=== PATIENT | female | born 1960 | race Caucasian/White ===

== ENCOUNTER → 2022-04-23 12:39 | Outpatient (BNVA) | payer SELFPAY | PROVIDERS: Visit Provider Nurse Practitioner Family | DX: M79.646 Pain in unspecified finger(s) (principal); S62.625A Displaced fracture of middle phalanx of left ring finger, initial encounter for closed fracture; X58.XXXA Exposure to other specified factors, initial encounter | CPT/HCPCS: 73130 ==

== ENCOUNTER 2022-05-11 09:04 | Inpatient (IN) | payer OTHER, SELFPAY ==
[2022-05-11] VITALS (14 sets, daily range): BP systolic 121–161; BP diastolic 65–118; PULSE 89–118; RESP 16–20; TEMP 36.4–36.8; O2SAT 84–97; BMI 24.3
--- NOTE | 2022-05-11 09:12 | XRR_ITS ---
PROCEDURE INFORMATION: Exam: XR Chest Exam date and time: 05/11/2022 9:34 AM Age: 62 years old Clinical indication: Shortness of breath. TECHNIQUE: Imaging protocol: Radiologic exam of the chest. Views: 1 view. COMPARISON: No relevant prior studies available. FINDINGS: Lungs: No pulmonary vascular congestion, pulmonary edema or pneumonia. Pleural spaces: No pleural effusion or pneumothorax. Heart/Mediastinum: The cardiac silhouette is not enlarged. The mediastinal contours are normal. Bones/joints: No acute osseous abnormality. XR/XR chest 1V portable [id number] IMPRESSION: No acute finding.
--- NOTE | 2022-05-11 09:13 | W.ED.SOB ---
HPI - SOB/Dyspnea General: Chief Complaint: Shortness of Breath/Dyspnea Stated Complaint: sob Time Seen by Provider: 05/11/22 09:04 Source: patient Mode of arrival: ambulatory Limitations: no limitations History of Present Illness: HPI Narrative: 62-year-old female has a history of COPD she states that she just finished a 5-day course of antibiotics and steroids for bronchitis she states that today she has been having much difficulty time breathing she is hypoxic here 84% on room air she does not wear oxygen at home states she does have a nebulizer but her wheezing is gotten much worse she does have wheezing here she denies any pain denies any fever denies any vomiting or diarrhea. Associated symptoms: Deny abdominal pain, chest pain, fever(s), nausea or vomiting Review of Systems Const: Denies: fever(s), chills, body aches or change in appetite Eyes: Denies: blurry vision or eye discomfort ENMT: Denies: throat pain or dental pain Card: Denies: chest pain Resp: Reports: dyspnea, non-productive cough and wheezing GI: Denies: abdominal pain, nausea, vomiting or diarrhea : Denies: dysuria Musc: Denies: neck pain or back pain Skin/Breast: Denies: rash Neuro: Denies: headache(s) Psych: Denies: depression Dandy/Lymph: Denies: easy bruising All/Imm: Denies: urticaria PFSH ED PFSH: Medical History (Updated 05/11/22 @ 10:54 by Iza Arreola MD) COPD (chronic obstructive pulmonary disease) Social History (Updated 05/11/22 @ 09:15 by Iza Arreola MD) Smoking and tobacco status: current every day smoker Physical Exam Const: COMMON NORMALS: patient oriented x3 GENERAL APPEARANCE: in distress HENMT: COMMON NORMALS: normocephalic and atraumatic HEAD & SCALP: normocephalic and atraumatic Eye: COMMON NORMALS: Equal, round and reactive pupils present and EOMs intact bilaterally PUPIL: Yes Equal, round and reactive pupils present Neck/C-Spine: COMMON NORMALS: full ROM and supple Chest: COMMONS NORMALS: normal inspection of the chest and normal palpation of entire chest wall Resp: EFFORT & INSPECTION: Yes tachypneic and Yes respiratory distress AUSCULTATION: wheezes Cardio: COMMON NORMALS: regular rate, regular rhythm and No murmurs present (Cardio) RATE: regular rate RHYTHM: regular rhythm GI: COMMON NORMALS: Normal to inspection, nondistended, normoactive bowel sounds present, Soft to palpation, non-tender and no masses PALPATION: Yes Soft to palpation Extremity: COMMON NORMALS: normal to inspection and full ROM Neuro: COMMON NORMALS: patient oriented x3, moves all extremities and no focal motor deficits Psych: COMMON NORMALS: mental status grossly normal, Normal thought process present and cooperative THOUGHT PROCESS: Normal thought process present Skin: COMMON NORMALS: no rashes or lesions noted and no wounds GENERAL SKIN EXAM: no rashes or lesions noted Course Vital Signs: Vital signs: Vital Signs Temperature 98.3 F 05/11/22 09:09 Pulse Rate 95 05/11/22 11:05 Respiratory Rate 17 05/11/22 11:05 Blood Pressure 157/78 05/11/22 09:16 Pulse Oximetry 94 05/11/22 11:05 Oxygen Delivery Me thod 05/11/22 11:05 Oxygen Flow Rate 2 05/11/22 11:05 MDM - SOB/Dyspnea Medical Decision Making Patient presents here with COPD exacerbation patient is requiring oxygen here she is also failed outpatient treatment spoke to the hospitalist will admit at this time CT shows no signs of pneumonia or PE she has improved here after breathing treatment. Lab Data 05/11/22 09:22 05/11/22 09:22 Labs/Radiology: Radiology Impressions Chest X-Ray 05/11/22 09:12 IMPRESSION: No acute finding. Chest CTA 05/11/22 09:49 IMPRESSION: No sign of acute pulmonary embolism. COMMENTS: In the absence of a history or active diagnosis of lung cancer, it is recommended that this patient with emphysema be evaluated for enrollment in a low dose CT lung cancer screening program. Laboratory Results WBC 13.4 10^3/uL (4.0-10.0) H 05/11/22 09:22 RBC 4.42 10^6/uL (4.1-5.3) 05/11/22 09:22 Hgb 13.3 g/dL (11.5-15.3) 05/11/22 09:22 Hct 41.1 % (37.0-47.0) 05/11/22 09:22 MCV 93.0 fl (81-99) 05/11/22 09:22 MCH 30.1 pg (28.0-34.0) 05/11/22 09:22 MCHC 32.4 g/dL (30.0-36.0) 05/11/22 09:22 RDW 12.3 % (12.1-15.1) 05/11/22 09:22 Plt Count 201 10^3/cmm (130-400) 05/11/22 09:22 MPV 9.4 fL (7.4-10.4) 05/11/22 09:22 Neut % (Auto) 78.0 % 05/11/22 09:22 Lymph % (Auto) 13.0 % 05/11/22 09:22 Lake % (Auto) 5.1 % 05/11/22 09:22 Eos % (Auto) 1.7 % 05/11/22 09:22 Baso % (Auto) 0.4 % 05/11/22 09:22 Neut # (Auto) 10.45 10^3/uL (1.8-7.7) H 05/11/22 09:22 Lymph # (Auto) 1.7 10^3/uL (0.8-4.8) 05/11/22 09:22 Lake # (Auto) 0.7 10^3/uL (0.2-0.9) 05/11/22 09:22 Eos # (Auto) 0.2 10^3/uL (0.0-0.8) 05/11/22 09:22 Baso # (Auto) 0.1 10^3/uL (0.0-0.1) 05/11/22 09:22 Nucleated RBC % (auto) 0 % 05/11/22 09: Nucleated RBCs # 0.0 /100WBC 05/11/22 09:22 PT 14.20 SECONDS (12.1-14.9) 05/11/22 09:22 INR 1.07 (0.8-1.2) 05/11/22 09:22 D-Dimer 1.09 ug/mIFEU (0-0.59) H 05/11/22 09:22 Specimen Type Art 05/11/22 09:28 Sample Site Rb 05/11/22 09:28 ABG pH 7.38 (7.35-7.45) 05/11/22 09:28 ABG pCO2 55.4 mmHg (35-45) H 05/11/22 09:28 ABG pO2 91.3 mmHg (80.0-100.0) 05/11/22 09:28 ABG HCO3 32.7 mmol/L (22-26) H 05/11/22 09:28 ABG Base Excess 5.9 mmol/L (-2.0-2.0) H 05/11/22 09:28 Nazario Test Na 05/11/22 09:28 Hematocrit 42.8 % (37-47) 05/11/22 09:28 Hgb O2 Saturation 95.5 % (95-100) 05/11/22 09:28 Carboxyhemoglobin 1.1 %THgb (0.4-20.1) 05/11/22 09:28 Methemoglobin 0.8 % (0.4-1.5) 05/11/22 09:28 Total Hemoglobin 14.0 g/dL (12-16) 05/11/22 09:28 O2 Delivery Device Nc 05/11/22 09:28 O2 Liters/Min 2.0 % 05/11/22 09:28 FiO2 28.0 % 05/11/22 09:28 American Sign Language Teacher ID Amh 05/11/22 09:28 Sodium 136 mmol/L (136-145) 05/11/22 09:22 Potassium 3.7 mmol/L (3.5-5.1) 05/11/22 09:22 Chloride 96 mmol/L (98-107) L 05/11/22 09:22 Carbon Dioxide 30 mmol/L (22-29) H 05/11/22 09:22 Anion Gap 13.7 (5-19) 05/11/22 09:22 BUN 10 mg/dL (8-23) 05/11/22 09:22 Creatinine 0.5 mg/dL (0.5-0.9) 05/11/22 09:22 GFR Calculation 125.4 mL/min (90-130) 05/11/22 09:22 Glucose 111 mg/dL (65-115) 05/11/22 09:22 Calculated Osmolality 282 mOsm/kg (285-295) L 05/11/22 09:22 Calcium 8.8 mg/dL (8.5-10.5) 05/11/22 09:22 Total Bilirubin 0.2 mg/dL (0.15-1.2) 05/11/22 09:22 AST 20 U/L (0-32) 05/11/22 09:22 ALT 26 U/L (0-33) 05/11/22 09:22 Alkaline Phosphatase 65 U/L (35-105) 05/11/22 09:22 NT-Pro-B Natriuret Pep 355 pg/mL (0-125) H 05/11/22 09:22 Total Protein 6.9 g/dL (6.6-8.7) 05/11/22 09:22 Albumin 3.8 g/dL (3.5-5.2) 05/11/22 09:22 Globulin 3.1 g/dL (1.3-4.6) 05/11/22 09:22 Influenza Type A Ag negative (Negative) 05/11/22 09:22 Influenza Type B Ag negative (Negative) 05/11/22 09:22 SARS-CoV-2 Ag (Rapid) negative (Negative) 05/11/22 09:22 EKG Data EKG 1: I personally reviewed and interpreted this EKG as follows: EKG Interpretation Date: 05/11/22 EKG interpretation time: 09:21 Interpretation: nsr hr [address] or t wave abnormalities qrs 89 qtc 366 Discharge Plan Discharge Patient Disposition: Admitted As Inpatient Admit Provider: Lance Erazo Clinical Impression: Acute exacerbation of chronic obstructive airways disease, Acute respiratory failure with hypoxemia Condition: Stable Coding Level of Care Code ED Diesel Service Technician for Chg Fwd Exam Comprehensive
--- NOTE | 2022-05-11 09:21 | ECG_ITS ---
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 Measurements Intervals [place] Rate: 88 P: 79 W[place]: 157 QRS: 81 QRSD: 89 T: 66 QT: 321 QTc: 388 Interpretive Statements SINUS RHYTHM POSSIBLE RIGHT VENTRICULAR CONDUCTION DELAY [RSR (QR) IN V1/V2] ANTEROSEPTAL MYOCARDIAL INFARCTION , OF INDETERMINATE AGE [40+ ms Q WAVE IN V1-V4] No previous ECG available for comparison Electronically Signed On 05-12-2022 11:24:09 NICKEL PLANT OPERATOR by Jameel Pak M.D. [id number]
[2022-05-11] MEDS: albuterol 2.5 mg/3 mL Neb INHALATION ×4 (09:23→19:28)
[2022-05-11] MEDS: ipratropium 0.5 mg/2.5 mL Neb INHALATION ×4 (09:23→19:28)
[2022-05-11 09:33] LABS: Basophils # 0.1 10^3/uL (0.0-0.1); Basophils % 0.4 %; Eosinophils # 0.2 10^3/uL (0.0-0.8); Eosinophils % 1.7 %; Hematocrit 41.1 % (37.0-47.0); Hemoglobin 13.3 g/dL (11.5-15.3); Lymphocytes # 1.7 10^3/uL (0.8-4.8); Mean Corpuscular HGB Conc 32.4 g/dL (30.0-36.0); Mean Corpuscular Hemoglobin 30.1 pg (28.0-34.0); Mean Platelet Volume 9.4 fL (7.4-10.4); Monocytes # 0.7 10^3/uL (0.2-0.9); Monocytes % 5.1 %; Neutrophils # 10.45 10^3/uL (1.8-7.7); Nucleated Red Blood Cells % 0 %; Platelet Count 201 10^3/cmm (130-400); Red Blood Count 4.42 10^6/uL (4.1-5.3); Red Cell Distribution Width 12.3 % (12.1-15.1); White Blood Count 13.4 10^3/uL (4.0-10.0)
[2022-05-11 09:40] LABS: ABG PCO2 55.4 mmHg (35-45); ABG PH Result 7.38 (7.35-7.45); Base Excess ABG 5.9 mmol/L (-2.0-2.0); Blood Gas Operator Identificat AMH; HCO3 ABG 32.7 mmol/L (22-26); PO2 ABG 91.3 mmHg (80.0-100.0)
[2022-05-11 09:41] LABS: Arterial Blood Gas Hematocrit 42.8 % (37-47); Blood Gas Sample Site RB; Blood Gas Sample Type ART; Carboxyhemoglobin 1.1 %THgb (0.4-20.1); HGB O2 Sat 95.5 % (95-100); Methemoglobin 0.8 % (0.4-1.5); Oxygen Device NC
[2022-05-11 09:44] LABS: INR 1.07 (0.8-1.2)
[2022-05-11 09:47] LABS: D Dimer 1.09 ug/mIFEU (0-0.59)
--- NOTE | 2022-05-11 09:49 | CTR_ITS ---
PROCEDURE INFORMATION: Exam: CTA Chest With Contrast Exam date and time: 05/11/2022 10:13 AM Age: 62 years old Clinical indication: Shortness of breath; Additional info: SOB TECHNIQUE: Imaging protocol: Computed tomographic angiography of the chest with contrast. 3D rendering (Not supervised by radiologist): MIP and/or 3D reconstructed images were created by the technologist. Radiation optimization: All CT scans at this facility use at least one of these dose optimization techniques: automated exposure control; mA and/or kV adjustment per patient size (includes targeted exams where dose is matched to clinical indication); or iterative reconstruction. Contrast material: OMNI 350; Contrast volume: 63 ml; Contrast route: INTRAVENOUS (IV); Other protocol: This patient has received 0 known CTs and 0 known cardiac nuclear medicine studies in the 12 months prior to the current study. COMPARISON: CR (CHEST, ) 05/11/2022 9:34 AM RADIATION DOSE METRICS: Total DLP (mGy-cm): 358.4 FINDINGS: Pulmonary arteries: No sign of acute pulmonary embolism. Aorta: No thoracic aortic aneurysm or dissection when allowing for pulsation artifact. Lungs: Mild bilateral centrilobular emphysema. Bilateral bronchial wall thickening which can be acute versus chronic inflammation or edema. No acute pneumonia or pulmonary edema. Pleural spaces: No pleural effusion or pneumothorax. Heart: The heart is not enlarged. No pericardial effusion. Lymph nodes: No pathologically enlarged lymph nodes. Adrenal glands: There is a 1.7 cm right adrenal mass with attenuation measurements compatible with a lipid rich adrenal adenoma. Bones/joints: Mild multilevel disc degeneration in the thoracic spine. Soft tissues: No acute soft tissue abnormality. CT/CT angio chest PE protcl [id number] IMPRESSION: No sign of acute pulmonary embolism. COMMENTS: In the absence of a history or active diagnosis of lung cancer, it is recommended that this patient with emphysema be evaluated for enrollment in a low dose CT lung cancer screening program.
[2022-05-11 10:03] LABS: Alanine Aminotransferase 26 U/L (0-33); Albumin Level 3.8 g/dL (3.5-5.2); Alkaline Phosphatase 65 U/L (35-105); Anion Gap 13.7 (5-19); Aspartate Amino Transferase 20 U/L (0-32); Blood Urea Nitrogen 10 mg/dL (8-23); Calcium 8.8 mg/dL (8.5-10.5); Carbon Dioxide 30 mmol/L (22-29); Chloride 96 mmol/L (98-107); Globulin 3.1 g/dL (1.3-4.6); Glomerular Filtration Rate 125.4 mL/min (90-130); Glucose 111 mg/dL (65-115); NT Pro B Type Natriuretic Pept 355 pg/mL (0-125); Osmolality Calculated 282 mOsm/kg (285-295); Potassium 3.7 mmol/L (3.5-5.1); Sodium 136 mmol/L (136-145); Total Bilirubin 0.2 mg/dL (0.15-1.2); Total Protein 6.9 g/dL (6.6-8.7)
[2022-05-11 10:04] LABS: SARS Covid-2 Antigen negative (Negative)
[2022-05-11 10:05] LABS: Influenza A by IFA negative (Negative); Influenza B by IFA negative (Negative)
[2022-05-11] MEDS: iohexol 350 mg/mL 500 mL Btl (per mL) IV (10:17)
--- NOTE | 2022-05-11 11:27 | P.HP_ITS ---
Providers/Chief Complaint Admitting Physician: Lance Erazo MD Chief Complaint: sob History of Present Illness Nahomy Echols is a 62 year old female with a past medical history of seizure COPD, emphysema,, history of left finger fracture, adopted, smoker who presents [facility] for shortness of breath. Patient has been feeling short of breath for the last few days, she has just finished her steroid and antibiotics, no fevers, no chills, nonproductive cough, no chest pain, no palpitations, increase shortness of breath with exertion Review of Systems Const: Denies: fever(s), chills, fatigue or malaise Eyes: Denies: change in vision or blurry vision ENMT: Denies: nasal congestion Card: Denies: chest pain Resp: Denies: productive cough GI: Denies: abdominal pain, nausea or vomiting : Denies: dysuria Musc: Denies: back pain Skin/Breast: Denies: rash Neuro: Denies: headache(s), dizziness or vertigo Psych: Denies: anxiety Endo: Denies: polyuria or polydipsia Medications/Allergies Home Medications Medication Instructions Recorded Confirmed Last Taken Type albuterol sulfate 90 mcg/actuation 2 puff inhalation QID PRN 05/11/22 05/11/22 Unknown History aerosol inhaler (Ventolin HFA) Shortness Of Breath azithromycin 250 mg tablet See Rx Instructions .Route .COMPLEX 05/11/22 05/11/22 05/10/22 History prednisone 20 mg tablet 40 mg PO DAILY 05/11/22 05/11/22 05/10/22 History tiotropium 2.5 mcg-olodaterol 2.5 2 puff inhalation DAILY 05/11/22 05/11/22 05/10/22 History mcg/actuation mist for inhalation (Stiolto Respimat) Allergies Allergy/AdvReac Type Severity Reaction Status Date / Time No Known Allergies Allergy Verified 05/11/22 09:16 PFSH Acute PFSH: Medical History (Updated 05/11/22 @ 10:54 by Iza Arreola MD) COPD (chronic obstructive pulmonary disease) Surgical History (Updated 05/11/22 @ 11:29 by Lance Erazo MD) History of Family History (Updated 05/11/22 @ 11:30 by Lance Erazo MD) Other Adopted Social History (Updated 05/11/22 @ 11:30 by Lance Erazo MD) Smoking and tobacco status: current every day smoker Alcohol intake: never Substance/Drug Use: never Vitals/I&O/Wt Last Vital Signs Temp 98.3 F 05/11/22 09:09 Pulse 95 05/11/22 11:05 Resp 17 05/11/22 11:05 BP 157/78 05/11/22 09:16 Pulse Ox 94 05/11/22 11:05 O2 Del Method 05/11/22 11:05 O2 Flow Rate 2 05/11/22 11:05 Weight last 48 hrs Weight 72.575 kg Physical Exam Const: COMMON NORMALS: no acute distress and patient oriented x3 HENMT: COMMON NORMALS: normocephalic HEAD & SCALP: normocephalic Neck/C-Spine: COMMON NORMALS: no JVD Resp: COMMON NORMALS: normal respiratory effort, No retractions and No use of accessory muscles AUSCULTATION: wheezes Cardio: COMMON NORMALS: no JVD, regular rate, regular rhythm, S1 normal heart sound present and S2 normal heart sound present RATE: regular rate RHYTHM: regular rhythm HEART SOUNDS: S1 normal heart sound present and S2 normal heart sound present GI: COMMON NORMALS: Normal to inspection, nondistended, normoactive bowel sounds present, Soft to palpation, non-tender, No hepatosplenomegaly present, no masses and no bruits PALPATION: Yes Soft to palpation and Yes No hepatosplenomegaly present Extremity: COMMON NORMALS: no clubbing, cyanosis or edema, no calf tenderness and no pedal edema Neuro: COMMON NORMALS: patient oriented x3, CN's II-XII intact bilaterally, moves all extremities and no focal motor deficits Psych: COMMON NORMALS: mental status grossly normal Skin: NARRATIVE SKIN EXAM: Left finger fracture, in a middle cast Data 05/11/22 09:22 05/11/22 09:22 A&P Assessment and plan (1) Acute exacerbation of chronic obstructive airways disease: (2) COPD (chronic obstructive pulmonary disease): (3) Fracture of finger, left, closed: Plan COPD exacerbation -Continue steroids -Continue doxycycline -Hypoxia, requiring 2 L -DuoNeb, -Incentive spirometer, flutter valve -Up out of bed -quit smoking -Nicotine patch -Full code -Lovenox for DVT prophylaxis Attestations Medical Necessity Statement*: Requires hospitalization, outpatient observation for COPD exacerbation Coding Level of Care Code Acute Code for Chg Fwd Diagnoses Acute exacerbation of chronic obstructive airways disease J44.1 COPD (chronic obstructive pulmonary disease) J44.9 Fracture of finger, left, closed S62.605Q
[2022-05-11] MEDS: nicotine 21 mg Patch 1 PATCH TRANSDERMA (13:23)
[2022-05-11] MEDS: doxycycline 100 MG in sodium chloride 0.9% (plus) 100 ML IV (13:24)
[2022-05-11] MEDS: enoxaparin 40 mg/0.4 mL Syringe SUBCUT (13:24)
[2022-05-11 13:53] LABS: Chol HDL Ratio 2.54 mg/dL (0.0-4.40); Cholesterol 203 mg/dL (0-200); HDL Cholesterol 80 mg/dL (60-100); LDL Cholesterol Calculated 111 mg/dL (50-129); LDL HDL Ratio 1.39 RATIO (0.00-3.22); Thyroid Stimulating Hormone 0.35 uIU/mL (0.27-4.20); Triglycerides 62 mg/dL (0-150)
[2022-05-11 13:58] LABS: Estmated Average Glucose 123; Hemoglobin A1C 5.9 % (4.0-6.0)
[2022-05-11] MEDS: lanolin oint 7 gm 1 APPLIC TOPICAL (20:47)
[2022-05-11] MEDS: ALPRAZolam 0.5 mg Tablet 0.25 MG PO (20:48)
[2022-05-12] VITALS (14 sets, daily range): BP systolic 114–143; BP diastolic 63–77; PULSE 77–96; RESP 16–20; TEMP 36.4–37.2; O2SAT 93–98
[2022-05-12] MEDS: doxycycline 100 MG in sodium chloride 0.9% (plus) 100 ML IV ×3 (00:15→23:35)
[2022-05-12 05:33] LABS: Basophils % 0.2 %; Eosinophils # 0.1 10^3/uL (0.0-0.8); Eosinophils % 0.4 %; Hematocrit 41.5 % (37.0-47.0); Lymphocytes % 6.9 %; Mean Corpuscular HGB Conc 31.3 g/dL (30.0-36.0); Mean Corpuscular Hemoglobin 29.5 pg (28.0-34.0); Mean Corpuscular Volume 94.3 fl (81-99); Mean Platelet Volume 9.9 fL (7.4-10.4); Monocytes # 0.7 10^3/uL (0.2-0.9); Monocytes % 4.9 %; Neutrophils # 12.88 10^3/uL (1.8-7.7); Neutrophils % 86.1 %; Nucleated Red Blood Cells % 0 %; Platelet Count 175 10^3/cmm (130-400); Red Cell Distribution Width 12.2 % (12.1-15.1)
[2022-05-12 05:53] LABS: Anion Gap 8.8 (5-19); Blood Urea Nitrogen 7 mg/dL (8-23); Calcium 8.6 mg/dL (8.5-10.5); Carbon Dioxide 34 mmol/L (22-29); Chloride 100 mmol/L (98-107); Glomerular Filtration Rate 162.3 mL/min (90-130); Glucose 101 mg/dL (65-115); Osmolality Calculated 286 mOsm/kg (285-295); Potassium 3.8 mmol/L (3.5-5.1); Sodium 139 mmol/L (136-145)
[2022-05-12] MEDS: albuterol 2.5 mg/3 mL Neb INHALATION (07:34)
[2022-05-12] MEDS: ipratropium 0.5 mg/2.5 mL Neb INHALATION ×3 (07:34→15:00)
[2022-05-12] MEDS: nicotine 21 mg Patch 1 PATCH TRANSDERMA (09:51)
[2022-05-12] MEDS: pantoprazole DR 40 mg Tablet PO (09:52)
[2022-05-12] MEDS: enoxaparin 40 mg/0.4 mL Syringe SUBCUT (11:47)
--- NOTE | 2022-05-12 12:30 | PM.PN ---
Subjective Subjective: Patient was seen this morning, currently on 2 L, she still complains of wheezing, had episodes of wheezing overnight, she is a bit better this morning she tells me Vitals/I&O/Wt Last Vital Signs Temp 97.7 F 05/12/22 08:00 Pulse 96 05/12/22 12:00 Resp 18 05/12/22 12:00 BP 130/74 05/12/22 12:00 Pulse Ox 93 05/12/22 12:00 O2 Del Method 05/12/22 11:08 O2 Flow Rate 2 05/12/22 11:08 05/11/22 05/12/22 05/12/22 22:59 06:59 14:59 Intake Total 720 / 1060 100 / 1160 260 / 260 Balance 720 / 1060 100 / 1160 260 / 260 Weight last 48 hrs Weight 72.575 kg Physical Exam Const: COMMON NORMALS: no acute distress and patient oriented x3 Resp: COMMON NORMALS: normal respiratory effort, No retractions and No use of accessory muscles AUSCULTATION: wheezes Cardio: COMMON NORMALS: regular rate, regular rhythm, S1 normal heart sound present and S2 normal heart sound present RATE: regular rate RHYTHM: regular rhythm HEART SOUNDS: S1 normal heart sound present and S2 normal heart sound present GI: COMMON NORMALS: Normal to inspection, nondistended, normoactive bowel sounds present and non-tender Extremity: COMMON NORMALS: no pedal edema Neuro: COMMON NORMALS: patient oriented x3 Psych: COMMON NORMALS: mental status grossly normal Data 05/12/22 04:34 05/12/22 04:34 A&P Assessment and plan (1) Acute exacerbation of chronic obstructive airways disease: (2) COPD (chronic obstructive pulmonary disease): (3) Fracture of finger, left, closed: (4) Smoker: (5) Centrilobular emphysema: Plan COPD exacerbation -Continue steroids -Continue doxycycline -Hypoxia, requiring 2 L -DuoNeb, -Incentive spirometer, flutter valve -Up out of bed -quit smoking -Nicotine patch -Full code -Lovenox for DVT prophylaxis Plan for today as she continues to have complaints of wheezing, shortness of breath continue steroid therapy, continue ambulation, monitor fevers, monitor respiratory status Attestations Medical Necessity Statement*: Patient requires hospitalization, inpatient, greater than 2 midnights, for COPD exacerbation Coding Level of Care Code Acute Code for Chg Fwd Diagnoses Acute exacerbation of chronic obstructive airways disease J44.1 COPD (chronic obstructive pulmonary disease) J44.9 Fracture of finger, left, closed S62.609A Smoker F17.200 Centrilobular emphysema J43.2
[2022-05-12] MEDS: ibuprofen 200 mg Tablet PO (18:18)
[2022-05-12] MEDS: acetaminophen 325 mg Tablet 650 MG PO (21:06)
[2022-05-12] MEDS: hyDROXYzine 25 mg Capsule PO (21:07)
[2022-05-13] VITALS (11 sets, daily range): BP systolic 129–149; BP diastolic 75–77; PULSE 82–98; RESP 15–18; TEMP 36.4–36.9; O2SAT 90–96
[2022-05-13] MEDS: acetaminophen 325 mg Tablet 650 MG PO ×2 (04:57→12:45)
[2022-05-13] MEDS: pantoprazole DR 40 mg Tablet PO (08:43)
[2022-05-13] MEDS: nicotine 21 mg Patch 1 PATCH TRANSDERMA (08:43)
--- NOTE | 2022-05-13 10:00 | XR_ITS ---
WS: [id number] CHEST XRAY TECHNIQUE: Portable chest. CLINICAL INFORMATION: sob COMPARISON: May 11, 2022 FINDINGS: Heart: Normal cardiac silhouette. Lungs: Hyperinflation. Chronic emphysematous changes. Chronic interstitial thickening in the lung bas es. No acute pulmonary infiltrates. No focal pneumonia or pleural fluid. Bones: Osteopenia. XR/XR chest 1V portable [id number] IMPRESSION: No acute chest findings.
--- NOTE | 2022-05-13 10:17 | PC.CHAP ---
Pastoral Care Encounter/Spiritual Assessment Type of Contact [] Declined senior project coordinator visit [] Patient/Family/Request visit [] Outpatient visit [] Follow-up visit [] Physician referral [] Code/Alert [x] Routine visit [] Staff referral [] Actively dying [] Patient sleeping [] Family support [] [] Out of room [] Palliative care [] [] Receiving care in room [] Pre-surgical visit [] Trauma [] Long length of stay [] ICU visit [] Other: Relational/Emotional Strength [x] Patient feels connected with others/family/visitors/staff [] Distress [] Loneliness/isolation [] Abandonment Spirituality of Patient [x] Person of Sandy [] Attends Sabianism of their Sandy [x] Believes in Prayer [] Reads Bible or Yarsanism materials [] There are 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] Prayer [x] Active listening [] Non-anxious presence [x] Spiritual/emotional support [] Crisis/trauma care [] Spiritual counseling [] Bereavement support [] Provided bereavement packet [] Provided Bible/devotional materials [] Provided toy/stuffed animal, coloring book to patient or family member [] Provided Communion [] Anointing/[place]danah [] Salvation [] Completed spiritual assessment [] Other: Impact on Illness or Injury [] Angry [] Fearful [] Anxious [] Often cries [] Exhaustion [] Unable to work [] Unable to attend faith [] Unable to walk/stand [] Unable to read [] Unable to drive [] Unable to eat/drink [] Unable to sleep [] Unable to be with family [] Patient intubated [] Other: Summary 10 min Time spent with patient
[2022-05-13 10:54] LABS: Basophils % 0.2 %; Hematocrit 46.1 % (37.0-47.0); Hemoglobin 14.9 g/dL (11.5-15.3); Lymphocytes # 0.6 10^3/uL (0.8-4.8); Mean Corpuscular HGB Conc 32.3 g/dL (30.0-36.0); Mean Corpuscular Hemoglobin 30.2 pg (28.0-34.0); Mean Corpuscular Volume 93.3 fl (81-99); Mean Platelet Volume 9.5 fL (7.4-10.4); Monocytes # 0.2 10^3/uL (0.2-0.9); Neutrophils % 91.7 %; Nucleated Red Blood Cells % 0 %; Platelet Count 188 10^3/cmm (130-400); Red Blood Count 4.94 10^6/uL (4.1-5.3); Red Cell Distribution Width 12.3 % (12.1-15.1); White Blood Count 11.1 10^3/uL (4.0-10.0)
[2022-05-13 11:16] LABS: NT Pro B Type Natriuretic Pept 607 pg/mL (0-125); Procalcitonin 0.03 ng/mL (0-0.5)
[2022-05-13 11:26] LABS: Anion Gap 9.4 (5-19); Blood Urea Nitrogen 12 mg/dL (8-23); C Reactive Protein 3.2 mg/L (0.0-4.9); Calcium 9.2 mg/dL (8.5-10.5); Carbon Dioxide 35 mmol/L (22-29); Chloride 95 mmol/L (98-107); Glomerular Filtration Rate 125.4 mL/min (90-130); Glucose 170 mg/dL (65-115); Osmolality Calculated 284 mOsm/kg (285-295); Potassium 4.4 mmol/L (3.5-5.1); Sodium 135 mmol/L (136-145)
--- NOTE | 2022-05-13 11:55 | PM.PN ---
Subjective Subjective: patient was seen this morning she continues to complain of wheezing, she works on transmission and work around acetone, but wears PPE Vitals/I&O/Wt Last Vital Signs Temp 97.6 F 05/13/22 08:00 Pulse 92 05/13/22 11:16 Resp 16 05/13/22 11:16 BP 149/76 05/13/22 08:00 Pulse Ox 91 05/13/22 11:16 O2 Del Method 05/13/22 11:16 O2 Flow Rate 1 05/13/22 11:16 05/12/22 05/13/22 05/13/22 22:59 06:59 14:59 Intake Total 240 / 950 340 / 1290 240 / 240 Balance 240 / 950 340 / 1290 240 / 240 Physical Exam Const: COMMON NORMALS: no acute distress and patient oriented x3 Resp: COMMON NORMALS: normal respiratory effort, No retractions and No use of accessory muscles AUSCULTATION: wheezes Cardio: COMMON NORMALS: regular rate, regular rhythm, S1 normal heart sound present and S2 normal heart sound present RATE: regular rate RHYTHM: regular rhythm HEART SOUNDS: S1 normal heart sound present and S2 normal heart sound present GI: COMMON NORMALS: Normal to inspection, nondistended, normoactive bowel sounds present and non-tender Extremity: COMMON NORMALS: no pedal edema Neuro: COMMON NORMALS: patient oriented x3 Psych: COMMON NORMALS: mental status grossly normal Data 05/13/22 10:29 05/13/22 10:29 Micro: Microbiology 05/13/22 10:29 Blood Culture - Preliminary Blood SPECIMEN COLLECTED 05/13/22 10:29 Blood Culture - Preliminary Blood SPECIMEN COLLECTED A&P Assessment and plan (1) Acute exacerbation of chronic obstructive airways disease: (2) COPD (chronic obstructive pulmonary disease): (3) Fracture of finger, left, closed: (4) Smoker: (5) Centrilobular emphysema: Plan COPD exacerbation -Continue steroids -Continue doxycycline -Hypoxia, requiring 2 L -DuoNeb, -Incentive spirometer, flutter valve -Up out of bed -quit smoking -Nicotine patch -Full code -Lovenox for DVT prophylaxis Plan for today as she continues to have complaints of wheezing, shortness of breath continue steroid therapy, continue ambulation, monitor fevers, monitor respiratory status, repeat procal, crp, cbc, bmp, chest xray Attestations Medical Necessity Statement*: patient requires hospitalization for copd exacerbation Coding Level of Care Code Acute Code for Chg Fwd Diagnoses Acute exacerbation of chronic obstructive airways disease J44.1 COPD (chronic obstructive pulmonary disease) J44.9 Fracture of finger, left, closed S62.609A Smoker F17.200 Centrilobular emphysema J43.2
[2022-05-13] MEDS: enoxaparin 40 mg/0.4 mL Syringe SUBCUT (12:45)
[2022-05-13] MEDS: doxycycline 100 MG in sodium chloride 0.9% (plus) 100 ML IV (12:45)
[2022-05-13] MEDS: ibuprofen 200 mg Tablet PO (12:45)
[2022-05-13] MEDS: ipratropium 0.5 mg/2.5 mL Neb INHALATION (14:58)
[2022-05-13] MEDS: predniSONE 20 mg Tablet 40 MG PO (20:27)
[2022-05-14] VITALS (8 sets, daily range): BP systolic 122–155; BP diastolic 74–87; PULSE 83–90; RESP 16–17; TEMP 36.6–36.9; O2SAT 85–93
[2022-05-14] MEDS: ipratropium 0.5 mg/2.5 mL Neb INHALATION ×2 (07:10→11:35)
[2022-05-14] MEDS: pantoprazole DR 40 mg Tablet PO (09:31)
[2022-05-14] MEDS: doxycycline 100 mg Tablet PO (09:31)
[2022-05-14] MEDS: predniSONE 20 mg Tablet 40 MG PO (09:31)
[2022-05-14] MEDS: nicotine 21 mg Patch 1 PATCH TRANSDERMA (09:32)
--- NOTE | 2022-05-14 09:44 | P.DS_ITS ---
Discharge Providers Date of Admission: 05/12/22 13:39 Date of Discharge: May 14, 2022 Attending Provider at Admission: Lance Erazo MD Attending Provider at Discharge: Lance Erazo MD Diagnoses at Discharge Discharge Diagnosis (1) Acute exacerbation of chronic obstructive airways disease: Status: Acute (2) COPD (chronic obstructive pulmonary disease): Status: Acute (3) Fracture of finger, left, closed: Status: Acute (4) Smoker: Status: Acute (5) Centrilobular emphysema: Status: Acute Reason for Visit Reason for Visit: sob Hospital Course Hospital Course Nahomy Echols is a 62 year old female with a past medical history of seizure COPD, emphysema,, history of left finger fracture, adopted, smoker who presents [facility] for shortness of breath.? Patient has been feeling short of breath for the last few days, she has just finished her steroid and antibiotics, no fevers, no chills, nonproductive cough, no chest pain, no palpitations, increase shortness of breath with exertion Patient requires hospitalization for acute COPD exacerbation, managed with steroid therapy, doxycycline, oxygen therapy and clinically monitored. Patient is slow clinical progress, but overall clinically improved. Patiently discharged on a steroid taper, doxycycline, inhalers, oxygen therapy with close follow-up with primary care provider as outpatient. Follow-up with Dr. Chang in 2 weeks. Advised to quit smoking on discharge Physical Exam Const: COMMON NORMALS: no acute distress and patient oriented x3 Resp: COMMON NORMALS: normal respiratory effort, No retractions, No use of accessory muscles and clear to auscultation bilaterally AUSCULTATION: clear to auscultation bilaterally Cardio: COMMON NORMALS: regular rate, regular rhythm, S1 normal heart sound present and S2 normal heart sound present RATE: regular rate RHYTHM: regul ar rhythm HEART SOUNDS: S1 normal heart sound present and S2 normal heart sound present GI: COMMON NORMALS: Normal to inspection, nondistended, normoactive bowel sounds present Extremity: COMMON NORMALS: no pedal edema Neuro: COMMON NORMALS: patient oriented x3 Psych: COMMON NORMALS: mental status grossly normal Discharge Data Studies Completed and Pending Completed Studies During Hospitalization Category Date Time Status CTA chest [CT angio chest PE protcl [id number]] Stat Cat Scan 05/11/22 09:49 Completed XR chest 1V portable [id number] Routine Exams 05/13/22 10:00 Completed XR chest 1V portable [id number] Stat Exams 05/11/22 09:12 Completed Pending at discharge Category Date Time Status Blood Culture Stat Lab 05/13/22 10:29 Results Radiology Impressions Chest CTA 05/11/22 09:49 IMPRESSION: No sign of acute pulmonary embolism. COMMENTS: In the absence of a history or active diagnosis of lung cancer, it is recommended that this patient with emphysema be evaluated for enrollment in a low dose CT lung cancer screening program. Chest X-Ray 05/13/22 10:00 IMPRESSION: No acute chest findings. Laboratory Results WBC 11.1 10^3/uL (4.0-10.0) H 05/13/22 10:29 RBC 4.94 10^6/uL (4.1-5.3) 05/13/22 10:29 Hgb 14.9 g/dL (11.5-15.3) 05/13/22 10:29 Hct 46.1 % (37.0-47.0) 05/13/22 10:29 MCV 93.3 fl (81-99) 05/13/22 10:29 MCH 30.2 pg (28.0-34.0) 05/13/22 10:29 MCHC 32.3 g/dL (30.0-36.0) 05/13/22 10:29 RDW 12.3 % (12.1-15.1) 05/13/22 10:29 Plt Count 188 10^3/cmm (130-400) 05/13/22 10:29 MPV 9.5 fL (7.4-10.4) 05/13/22 10:29 Neut % (Auto) 91.7 % 05/13/22 10:29 Lymph % (Auto) 5.0 % 05/13/22 10:29 [place] % (Auto) 2.0 % 05/13/22 10:29 Eos % (Auto) 0.0 % 05/13/22 10:29 Baso % (Auto) 0.2 % 05/13/22 10:29 Neut # (Auto) 10.20 10^3/uL (1.8-7.7) H 05/13/22 10:29 Lymph # (Auto) 0.6 10^3/uL (0.8-4.8) L 05/13/22 10:29 [place] # (Auto) 0.2 10^3/uL (0.2-0.9) 05/13/22 10:29 Eos # (Auto) 0.0 10^3/uL (0.0-0.8) 05/13/22 10:29 Baso # (Auto) 0.0 10^3/uL (0.0-0.1) 05/13/22 10:29 Nucleated RBC % (auto) 0 % 05/13/22 10:29 Nucleated RBCs # 0.0 /100WBC 05/13/22 10:29 PT 14.20 SECONDS (12.1-14.9) 05/11/22 09:22 INR 1.07 (0.8-1.2) 05/11/22 09:22 D-Dimer 1.09 ug/mIFEU (0-0.59) H 05/11/22 09:22 Specimen Type Art 05/11/22 09:28 Sample Site Rb 05/11/22 09:28 ABG pH 7.38 (7.35-7.45) 05/11/22 09:28 ABG pCO2 55.4 mmHg (35-45) H 05/11/22 09:28 ABG pO2 91.3 mmHg (80.0-100.0) 05/11/22 09:28 ABG HCO3 32.7 mmol/L (22-26) H 05/11/22 09:28 ABG Base Excess 5.9 mmol/L (-2.0-2.0) H 05/11/22 09:28 Nazario Test Na 05/11/22 09:28 Hematocrit 42.8 % (37-47) 05/11/22 09:28 Hgb O2 Saturation 95.5 % (95-100) 05/11/22 09:28 Carboxyhemoglobin 1.1 %THgb (0.4-20.1) 05/11/22 09:28 Methemoglobin 0.8 % (0.4-1.5) 05/11/22 09:28 Total Hemoglobin 14.0 g/dL (12-16) 05/11/22 09:28 O2 Delivery Device Nc 05/11/22 09:28 O2 Liters/Min 2.0 % 05/11/22 09:28 FiO2 28.0 % 05/11/22 09:28 National Sales ID [id number] 05/11/22 09:28 Sodium 135 mmol/L (136-145) L 05/13/22 10:29 Potassium 4.4 mmol/L (3.5-5.1) 05/13/22 10:29 Chloride 95 mmol/L (98-107) L 05/13/22 10:29 Carbon Dioxide 35 mmol/L (22-29) H 05/13/22 10:29 Anion Gap 9.4 (5-19) 05/13/22 10:29 BUN 12 mg/dL (8-23) 05/13/22 10:29 Creatinine 0.5 mg/dL (0.5-0.9) 05/13/22 10:29 GFR Calculation 125.4 mL/min (90-130) 05/13/22 10:29 Glucose 170 mg/dL (65-115) H 05/13/22 10:29 Estimat Average Glucose 123 05/11/22 12:49 Hemoglobin A1c 5.9 % (4.0-6.0) 05/11/22 12:49 Calculated Osmolality 284 mOsm/kg (285-295) L 05/13/22 10:29 Calcium 9.2 mg/dL (8.5-10.5) 05/13/22 10:29 Total Bilirubin 0.2 mg/dL (0.15-1.2) 05/11/22 09:22 AST 20 U/L (0-32) 05/11/22 09:22 ALT 26 U/L (0-33) 05/11/22 09:22 Alkaline Phosphatase 65 U/L (35-105) 05/11/22 09:22 C-Reactive Protein 3.2 mg/L (0.0-4.9) 05/13/22 10:29 NT-Pro-B Natriuret Pep 607 pg/mL (0-125) H 05/13/22 10:29 Total Protein 6.9 g/dL (6.6-8.7) 05/11/22 09:22 Albumin 3.8 g/dL (3.5-5.2) 05/11/22 09:22 Globulin 3.1 g/dL (1.3-4.6) 05/11/22 09:22 Triglycerides 62 mg/dL (0-150) 05/11/22 12:49 Cholesterol 203 mg/dL (0-200) H 05/11/22 12:49 LDL Cholesterol, Calc 111 mg/dL (50-129) 05/11/22 12:49 HDL Cholesterol 80 mg/dL (60-100) 05/11/22 12:49 LDL/HDL Ratio 1.39 RATIO (0.00-3.22) 05/11/22 12:49 Cholesterol/HDL Ratio 2.54 mg/dL (0.0-4.40) 05/11/22 12:49 Procalcitonin 0.03 ng/mL (0-0.5) 05/13/22 10:29 TSH 0.35 uIU/mL (0.27-4.20) 05/11/22 12:49 Influenza Type A Ag negative (Negative) 05/11/22 09:22 Influenza Type B Ag negative (Negative) 05/11/22 09:22 SARS-CoV-2 Ag (Rapid) negative (Negative) 05/11/22 09:22 Vitals Last Vital Signs Temp 98.0 F 05/14/22 08:00 Pulse 84 05/14/22 08:00 Resp 16 05/14/22 08:00 BP 130/74 05/14/22 08:00 Pulse Ox 89 L 05/14/22 08:00 O2 Del Method 05/14/22 08:00 O2 Flow Rate 2 05/14/22 08:00 Discharge Plan Discharge Patient Disposition: Home Condition: Stable Prescriptions: New nicotine 21 mg/24 hr Patch 24 Hour 1 patch transdermal DAILY Qty: 28 0RF doxycycline monohydrate 100 mg Tablet 100 mg PO BID 5 Days Qty: 10 0RF albuterol sulfate 90 mcg/actuation HFA aerosol inhaler 1 inh inhalation Q6H PRN (Reason: shortness of breath or wheezing) Qty: 8.5 0RF fluticasone propion-salmeterol [Advair Diskus] 250-50 mcg/dose blister with device 1 inh inhalation BID Qty: 60 0RF prednisone 10 mg tablet See Rx Instructions .ROUTE .COMPLEX Qty: 53 0RF Rx Instructions: 4 tabs a day for 5 days, 3 tabs for 5 days, 2 tabs for 5 days, 1 tab for 5 days, 0.5 tab for 5 days Spiriva Respimat 1.25 mcg/actuation mist 2 inh inhalation Q24H Qty: 4 0RF Discontinued azithromycin 250 mg tablet See Rx Instructions .ROUTE .COMPLEX Rx Instructions: 500mg on day 1 and 250mg on day 2-5 prednisone 20 mg tablet 40 mg PO DAILY Rx Instructions: x 5 days Stiolto Respimat 2.5-2.5 mcg/actuation mist 2 puff INHALATION DAILY Ventolin HFA 90 mcg/actuation Hfa Aerosol Inhaler 2 puff INHALATION QID PRN (Reason: Shortness Of Breath) Discharge Orders: Discharge Order (Routine); Ordered 05/14/22 Ordered By: Lance Erazo Referrals: Bubba Hassan MD [Physician] - 2 weeks Discharge Diet: Regular Discharge Activity: Resume usual activity Patient Instructions: Opioid Safety Activity Restrictions/Additional Instructions: - Please stop smoking -Please take steroid taper as prescribed -Please take inhalers as prescribed -Please follow-up with primary care provider in 1 week -Please follow-up with Dr. Hassan in 2 weeks Discharge Attestations Time Spent in Discharge Care*: greater than 30 min Quality Metrics Clinical Quality Measures [ No reported AMI, CVA or VTE this stay] Coding Level of Care Code Acute [facility] note Diagnoses Acute exacerbation of chronic obstructive airways disease J44.1 COPD (chronic obstructive pulmonary disease) J44.9 Fracture of finger, left, closed S62.821B Smoker F17.200 Centrilobular emphysema J43.2
--- NOTE | 2022-05-14 15:18 | PC.NURSE ---
discussed discharge with patient and family member. Discussed new medications, stopped medications and to call Dr. Hassan's office to setup appointment for two weeks. verbalized understanding
== END 2022-05-14 14:30 | disposition home or self-care (01) | DRG 192 ==
LOC: ER 10:54 → MEDSURG 11:26
PROVIDERS: Admitting Provider Family Medicine; Emergency Provider Emergency Medicine; Visit Provider Family Medicine
DX: J43.2 Centrilobular emphysema (principal); F17.200 Nicotine dependence, unspecified, uncomplicated; Z79.52 Long term (current) use of systemic steroids; Z79.51 Long term (current) use of inhaled steroids
CPT/HCPCS: 36415; 36600; 71045; 71275; 80048; 80053; 80061; 82805; 83036; 83880; 84145; 84443; 85025; 85378; 85610; 86140; 87040; 87426; 87804; 93005; 94640; 94760; 96372; 96374; 99285; G0378; J1650; J2920; J2930; J3490; J7512; J7611; J7613; J7644; Q9967

== ENCOUNTER 2022-07-03 06:59 | Outpatient (CLI) | payer OTHER, SELFPAY ==
[2022-07-03 07:27] VITALS: PULSE 66; RESP 18; O2SAT 98
[2022-07-03] MEDS: albuterol 2.5 mg/3 mL Neb INHALATION (07:27)
[2022-07-03 07:31] VITALS: PULSE 74
[2022-07-03 07:45] VITALS: BP 131/79; BP 138/71
== END 2022-07-03 07:00 | disposition home or self-care (01) ==
PROVIDERS: PCP Family Medicine; Visit Provider Internal Medicine Pulmonary Disease
DX: J44.9 Chronic obstructive pulmonary disease, unspecified (principal)
CPT/HCPCS: 94060; 94618; 94726; 94729; J7613

== ENCOUNTER 2022-07-13 08:17 | Outpatient (RCR) | payer OTHER, SELFPAY | END 2022-08-11 23:59 | disposition home or self-care (01) | LOC: MOT 08:17 | PROVIDERS: Visit Provider Orthopaedic Surgery | DX: S62.625G Displaced fracture of middle phalanx of left ring finger, subsequent encounter for fracture with delayed healing (principal); Y99.9 Unspecified external cause status | CPT/HCPCS: 97018; 97022; 97110; 97140 ==

== ENCOUNTER 2022-08-12 06:00 | Outpatient (RCR) | payer OTHER, SELFPAY | END 2022-08-19 23:59 | disposition home or self-care (01) | LOC: MOT 06:00 | PROVIDERS: Visit Provider Orthopaedic Surgery | DX: S62.625G Displaced fracture of middle phalanx of left ring finger, subsequent encounter for fracture with delayed healing (principal); X58.XXXD Exposure to other specified factors, subsequent encounter | CPT/HCPCS: 97110; 97140 ==